=== PATIENT | male | born 1950 | race Caucasian/White ===

== ENCOUNTER 2016-10-08 14:58 | Inpatient (IN) | payer MEDICARE, OTHER ==
[~2016-10-08] VITALS: Ht 167.6 cm; Wt 81.6 kg
--- OUTSIDE RECORDS SUMMARY | 2016-10-08 15:02 | XMS REPORT | Referral Summary ---
Author Organization Unknown Address Unknown Phone Unavailable Care Team Providers Care Stripper Preliminary Name Role Phone Ben Gonzales Primary Care Physician [phone] Encounter [facility] SEBASTIAN [id number] Date(s): 08/01/14 - 08/01/14 [facility] Kee Newton Family [address] [place] [id number] Discharge Diagnosis: Encounter for pre-employment drug testing Discharge Disposition: Home or Self Care Attending Physician: Avinash Landry MD Admitting Physician: Avinash Landry MD Vital Signs Most recent to 1 oldest [Reference Range]: Peripheral Pulse 76 bpm Rate [60-100 bpm] (08/01/14 8:18 AM) Blood Pressure 130/80 mmHg [90-140/60-90 mmHg] (08/01/14 8:18 AM) Problem List Condition Effective Dates Status Health Status Informant Obesity(Confirmed) Active patient Tobacco Active patient user(Confirmed) Allergies, Adverse Reactions, Alerts No Known Allergies Medications No data available for this section Results No data available for this section Immunizations No data available for this section Procedures No data available for this section Social History Social History Type Response Smoking Status Current some day smoker; Type: Cigarettes Assessment and Plan Extracted from: Title: Ambulatory Patient Education Author: Avinash Landry MD Date: Family Medicine Preventive Care for Adults, Male A healthy lifestyle and preventive care can promote health and wellness. Preventive health guidelines for men include the following becerra practices: A routine yearly physical is a good way to check with your caregiver about your health and preventative screening. It is a chance to share any concerns and updates on your health, and to receive a thorough exam. Visit your dentist for a routine exam and preventative care every 6 months. Melvin your teeth twice a day and floss once a day. Good oral hygiene prevents tooth decay and gum disease. The frequency of eye exams is based on your age, health, family medical history, use of contact lenses, and other factors. Follow your caregiver's recommendations for frequency of eye exams. Eat a healthy diet. Foods like vegetables, fruits, whole grains, low-fat dairy products, and lean protein foods contain the nutrients you need without too many calories. Decrease your intake of foods high in solid fats, added sugars, and salt. Eat the right amount of calories for you.Get information about a proper diet from your caregiver, if necessary. Regular physical exercise is one of the most important things you can do for your health. Most adults should get at least 150 minutes of moderate- intensity exercise (any activity that increases your heart rate and causes you to sweat) each week. In addition, most adults need muscle-strengthening exercises on 2 or more days a week. Maintain a healthy weight. The body mass index (BMI) is a screening tool to identify possible weight problems. It provides an estimate of body fat based on height and weight. Your caregiver can help determine your BMI, and can help you achieve or maintain a healthy weight.For adults 20 years and older: A BMI below 18.5 is considered underweight. A BMI of 18.5 to 24.9 is normal. A BMI of 25 to 29.9 is considered overweight. A BMI of 30 and above is considered obese. Maintain normal blood lipids and cholesterol levels by exercising and minimizing your intake of saturated fat. Eat a balanced diet with plenty of fruit and vegetables. Blood tests for lipids and cholesterol should begin at age 20 and be repeated every 5 years. If your lipid or cholesterol levels are high, you are over 50, or you are a high risk for heart disease, you may need your cholesterol levels checked more frequently.Ongoing high lipid and cholesterol levels should be treated with medicines if diet and exercise are not effective. If you smoke, find out from your caregiver how to quit. If you do not use tobacco, do not start. Lung cancer screening is recommended for adults aged 5580 years who are at high risk for developing lung cancer because of a history of smoking. Yearly low-dose computed tomography (CT) is recommended for people who have at least a 54-pvmf-vkuh history of smoking and are a current smoker or have quit within the past 15 years. A pack year of smoking is smoking an average of 1 pack of cigarettes a day for 1 year (for example: 1 pack a day for 30 years or 2 packs a day for 15 years). Yearly screening should continue until the smoker has stopped smoking for at least 15 years. Yearly screening should also be stopped for people who develop a health problem that would prevent them from having lung cancer treatment. If you choose to drink alcohol, do not exceed 2 drinks per day. One drink is considered to be 12 ounces (355 mL) of beer, 5 ounces (148 mL) of wine, or 1.5 ounces (44 mL) of liquor. Avoid use of street drugs. Do not share needles with anyone. Ask for help if you need support or instructions about stopping the use of drugs. High blood pressure causes heart disease and increases the risk of stroke. Your blood pressure should be checked at least every 1 to 2 years. Ongoing high blood pressure should be treated with medicines, if weight loss and exercise are not effective. If you are 45 to 79 years old, ask your caregiver if you should take aspirin to prevent heart disease. Diabetes screening involves taking a blood sample to check your fasting blood sugar level. This should be done once every 3 years, after age 45, if you are within normal weight and without risk factors for diabetes. Testing should be considered at a younger age or be carried out more frequently if you are overweight and have at least 1 risk factor for diabetes. Colorectal cancer can be detected and often prevented. Most routine colorectal cancer screening begins at the age of 50 and continues through age 75. However, your caregiver may recommend screening at an earlier age if you have risk factors for colon cancer. On a yearly basis, your caregiver may provide home test kits to check for hidden blood in the stool. Use of a small camera at the end of a tube, to directly examine the colon (sigmoidoscopy or colonoscopy ), can detect the earliest forms of colorectal cancer. Talk to your caregiver about this at age 50, when routine screening begins. Direct examination of the colon should be repeated every 5 to 10 years through age 75, unless early forms of pre-cancerous polyps or small growths are found. Hepatitis C blood testing is recommended for all people born from 1945 through 1965 and any individual with known risks for hepatitis C. Practice safe sex. Use condoms and avoid high-risk sexual practices to reduce the spread of sexually transmitted infections (STIs). STIs include gonorrhea, chlamydia, syphilis, trichomonas, herpes, HPV, and human immunodeficiency virus (HIV). Herpes, HIV, and HPV are viral illnesses that have no cure. They can result in disability, cancer, and . A one-time screening for abdominal aortic aneurysm (AAA) and surgical repair of large AAAs by sound wave imaging (ultrasonography ) is recommended for ages 65 to 75 years who are current or former smokers. Healthy men should no longer receive prostate-specific antigen (PSA) blood tests as part of routine cancer screening. Consult with your caregiver about prostate cancer screening. Testicular cancer screening is not recommended for adult males who have no symptoms. Screening includes self-exam, caregiver exam, and other screening tests. Consult with your caregiver about any symptoms you have or any concerns you have about testicular cancer. Use sunscreen. Apply sunscreen liberally and repeatedly throughout the day. You should seek shade when your shadow is shorter than you. Protect yourself by wearing long sleeves, pants, a wide-brimmed hat, and sunglasses year round, whenever you are outdoors. Once a month, do a whole body skin exam, using a mirror to look at the skin on your back. Notify your caregiver of new moles, moles that have irregular borders, moles that are larger than a pencil eraser, or moles that have changed in shape or color. Stay current with required immunizations. Influenza vaccine. All adults should be immunized every year. Tetanus, diphtheria, and acellular pertussis (Td, Tdap) vaccine. An adult who has not previously received Tdap or who does not know his vaccine status should receive 1 dose of Tdap. This initial dose should be followed by tetanus and diphtheria toxoids (Td) booster doses every 10 years. Adults with an unknown or incomplete history of completing a 3-dose immunization series with Td -containing vaccines should begin or complete a primary immunization series including a Tdap dose. Adults should receive a Td booster every 10 years. Varicella vaccine. An adult without evidence of immunity to varicella should receive 2 doses or a second dose if he has previously received 1 dose. Human papillomavirus (HPV) vaccine. Males aged 1321 years who have not received the vaccine previously should receive the 3-dose series. Males aged 22 26 years may be immunized. Immunization is recommended through the age of 26 years for any male who has sex with males and did not get any or all doses earlier. Immunization is recommended for any person with an immunocompromised condition through the age of 26 years if he did not get any or all doses earlier. During the 3-dose series, the second dose should be obtained 48 weeks after the first dose. The third dose should be obtained 24 weeks after the first dose and 16 weeks after the second dose. Zoster vaccine. One dose is recommended for adults aged 60 years or older unless certain conditions are present. Measles, mumps, and rubella (MMR) vaccine. Adults born before 1955 generally are considered immune to measles and mumps. Adults born in 1955 or later should have 1 or more doses of MMR vaccine unless there is a contraindication to the vaccine or there is laboratory evidence of immunity to each of the three diseases. A routine second dose of MMR vaccine should be obtained at least 28 days after the first dose for students attending postsecondary schools, health care workers, or international travelers. People who received inactivated measles vaccine or an unknown type of measles vaccine during should receive 2 doses of MMR vaccine. People who received inactivated mumps vaccine or an unknown type of mumps vaccine before 1978 and are at high risk for mumps infection should consider immunization with 2 doses of MMR vaccine. Unvaccinated health care workers born before 1956 who lack laboratory evidence of measles, mumps, or rubella immunity or laboratory confirmation of disease should consider measles and mumps immunization with 2 doses of MMR vaccine or rubella immunization with 1 dose of MMR vaccine. Pneumococcal 13-valent conjugate (PCV13) vaccine. When indicated, a person who is uncertain of his immunization history and has no record of immunization should receive the PCV13 vaccine. An adult aged 19 years or older who has certain medical conditions and has not been previously immunized should receive 1 dose of PCV13 vaccine. This PCV13 should be followed with a dose of pneumococcal polysaccharide (PPSV23) vaccine. The PPSV23 vaccine dose should be obtained at least 8 weeks after the dose of PCV13 vaccine. An adult aged 19 years or older who has certain medical conditions and previously received 1 or more doses of PPSV23 vaccine should receive 1 dose of PCV13. The PCV13 vaccine dose should be obtained 1 or more years after the last PPSV23 vaccine dose. Pneumococcal polysaccharide (PPSV23) vaccine. When PCV13 is also indicated , PCV13 should be obtained first. All adults aged 65 years and older should be immunized. An adult younger than age 65 years who has certain medical conditions should be immunized. Any person who resides in a detention or long -term care facility should be immunized. An adult smoker should be immunized. People with an immunocompromised condition and certain other conditions should receive both PCV13 and PPSV23 vaccines. People with human immunodeficiency virus (HIV) infection should be immunized as soon as possible after diagnosis. Immunization during chemotherapy or radiation therapy should be avoided. Routine use of PPSV23 vaccine is not recommended for [place] Indians, [place] Natives, or people younger than 65 years unless there are medical conditions that require PPSV23 vaccine. When indicated, people who have unknown immunization and have no record of immunization should receive PPSV23 vaccine. One-time revaccination 5 years after the first dose of PPSV23 is recommended for people aged 1964 years who have chronic kidney failure, nephrotic syndrome, asplenia, or immunocompromised conditions. People who received 12 doses of PPSV23 before age 65 years should receive another dose of PPSV23 vaccine at age 65 years or later if at least 5 years have passed since the previous dose. Doses of PPSV23 are not needed for people immunized with PPSV23 at or after age 65 years. Meningococcal vaccine. Adults with asplenia or persistent complement component deficiencies should receive 2 doses of quadrivalent meningococcal conjugate (MenACWY-D) vaccine. The doses should be obtained at least 2 months apart. Microbiologists working with certain meningococcal bacteria, recruits, people at risk during an outbreak, and people who travel to or live in countries with a high rate of meningitis should be immunized. A first-year college student up through age 21 years who is living in a residence [place] should receive a dose if he did not receive a dose on or after his 16th birthday. Adults who have certain high-risk conditions should receive one or more doses of vaccine. Hepatitis A vaccine. Adults who wish to be protected from this disease, have certain high-risk conditions, work with hepatitis A-infected animals, work in hepatitis A research labs, or travel to or work in countries with a high rate of hepatitis A should be immunized. Adults who were previously unvaccinated and who anticipate close contact with an international adoptee during the first 60 days after arrival in the [place] from a country with a high rate of hepatitis A should be immunized. Hepatitis B vaccine. Adults who wish to be protected from this disease, have certain high-risk conditions, may be exposed to blood or other infectious body fluids, are household contacts or sex partners of hepatitis B positive people, are clients or workers in certain care facilities, or travel to or work in countries with a high rate of hepatitis B should be immunized. Haemophilus influenzae type b (Hib) vaccine. A previously unvaccinated person with asplenia or sickle cell disease or having a scheduled splenectomy should receive 1 dose of Hib vaccine. Regardless of previous immunization, a recipient of a hematopoietic stem cell transplant should receive a 3-dose series 612 months after his successful transplant. Hib vaccine is not recommended for adults with HIV infection. Preventive Service / Frequency Ages 19 to 39 Blood pressure check. / Every 1 to 2 years. Lipid and cholesterol check. / Every 5 years beginning at age 20. Hepatitis C blood test. / For any individual with known risks for hepatitis C. Skin self-exam. / Monthly. Influenza vaccine. / Every year. Tetanus, diphtheria, and acellular pertussis (Tdap, Td) vaccine. / Consult your caregiver. 1 dose of Td every 10 years. Varicella vaccine. / Consult your caregiver. HPV vaccine. / 3 doses over 6 months, if 26 and younger. Measles, mumps, rubella (MMR) vaccine. / You need at least 1 dose of MMR if you were born in 1957 or later. You may also need a 2nd dose. Pneumococcal 13-valent conjugate (PCV13) vaccine. / Consult your caregiver. Pneumococcal polysaccharide (PPSV23) vaccine. / 1 to 2 doses if you smoke cigarettes or if you have certain conditions. Meningococcal vaccine. / 1 dose if you are age 19 to 21 years and a first -year college student living in a residence [place], or have one of several medical conditions, you need to get vaccinated against meningococcal disease. You may also need additional booster doses. Hepatitis A vaccine. / Consult your caregiver. Hepatitis B vaccine. / Consult your caregiver. Haemophilus influenzae type b (Hib) vaccine. / Consult your caregiver. Ages 40 to 64 Blood pressure check. / Every 1 to 2 years. Lipid and cholesterol check. / Every 5 years beginning at age 20. Lung cancer screening. / Every year if you are aged 5580 years and have a 13-vvsy-sjpo history of smoking and currently smoke or have quit within the past 15 years. Yearly screening is stopped once you have quit smoking for at least 15 years or develop a health problem that would prevent you from having lung cancer treatment. Fecal occult blood test (FOBT) of stool. / Every year beginning at age 50 and continuing until age 75. You may not have to do this test if you get colonoscopy every 10 years. Flexible sigmoidoscopy or colonoscopy. / Every 5 years for a flexible sigmoidoscopy or every 10 years for a colonoscopy beginning at age 50 and continuing until age 75. Hepatitis C blood test. / For all people born from 1945 through 1964 and any individual with known risks for hepatitis C. Skin self-exam. / Monthly. Influenza vaccine. / Every year. Tetanus, diphtheria, and acellular pertussis (Tdap/Td) vaccine. / Consult your caregiver. 1 dose of Td every 10 years. Varicella vaccine. / Consult your caregiver. Zoster vaccine. / 1 dose for adults aged 60 years or older. Measles, mumps, rubella (MMR) vaccine. / You need at least 1 dose of MMR if you were born in 1956 or later. You may also need a 2nd dose. Pneumococcal 13-valent conjugate (PCV13) vaccine. / Consult your caregiver. Pneumococcal polysaccharide (PPSV23) vaccine. / 1 to 2 doses if you smoke cigarettes or if you have certain conditions. Meningococcal vaccine. / Consult your caregiver. Hepatitis A vaccine. / Consult your caregiver. Hepatitis B vaccine. / Consult your caregiver. Haemophilus influenzae type b (Hib) vaccine. / Consult your caregiver. Ages 65 and over Blood pressure check. / Every 1 to 2 years. Lipid and cholesterol check./ Every 5 years beginning at age 20. Lung cancer screening. / Every year if you are aged 5580 years and have a 30-oqzp-xvbp history of smoking and currently smoke or have quit within the past 15 years. Yearly screening is stopped once you have quit smoking for at least 15 years or develop a health problem that would prevent you from having lung cancer treatment. Fecal occult blood test (FOBT) of stool. / Every year beginning at age 50 and continuing until age 75. You may not have to do this test if you get colonoscopy every 10 years. Flexible sigmoidoscopy or colonoscopy. / Every 5 years for a flexible sigmoidoscopy or every 10 years for a colonoscopy beginning at age 50 and continuing until age 75. Hepatitis C blood test. / For all people born from 1945 through 1964 and any individual with known risks for hepatitis C. Abdominal aortic aneurysm (AAA) screening. / A one-time screening for ages 65 to 75 years who are current or former smokers. Skin self-exam. / Monthly. Influenza vaccine. / Every year. Tetanus, diphtheria, and acellular pertussis (Tdap/Td) vaccine. / 1 dose of Td every 10 years. Varicella vaccine. / Consult your caregiver. Zoster vaccine. / 1 dose for adults aged 60 years or older. Pneumococcal 13-valent conjugate (PCV13) vaccine. / Consult your caregiver. Pneumococcal polysaccharide (PPSV23) vaccine. / 1 dose for all adults aged 65 years and older. Meningococcal vaccine. / Consult your caregiver. Hepatitis A vaccine. / Consult your caregiver. Hepatitis B vaccine. / Consult your caregiver. Haemophilus influenzae type b (Hib) vaccine. / Consult your caregiver. Family history and personal history of risk and conditions may change your caregiver's recommendations. Document Released: 07/04/2002 Document Revised: 09/02/2013 Document Reviewed: ExitCare Patient Information 2014 [facility] [place]. No follow up information was provided. Extracted from: Title: Office Visit Note Author: Avinash Landry MD Date: 08/01/14 Assessment/Plan Encounter for pre-employment drug testing Two year permitexpected. UA pending. Ordered: Urine Dipstick Addendum One plus protein on final ua but not reported on preliminary. Patient already left with by card. Call to f/u with pcp. Avinash Landry MD on 01 August 2014 09:46:50 CDT
--- OUTSIDE RECORDS SUMMARY | 2016-10-08 15:02 | XMS REPORT | Continuity of Care Document ---
Author Author Rick Kingston DO Ambulatory Address [address] [place] [address] [place] [address] Phone Payers Payer name Insurance type Covered democrat ID Authorization(s) Unknown Problems Condition Effective Dates (start - stop) Clinical Status Brake Repair Mechanic's permit PE (physical examination) - *Routine Arthritis of shoulder region - *Controlled Family History Family Member Diagnosis Age At Onset Status Unknown Social History Social History Element Description Quantity Unknown Allergies, Adverse Reactions, Alerts Substance Reaction Severity Status Unknown Medications Medication Instructions Dosage Effective Dates (start - stop) Status Unknown Immunizations Vaccine Date Status Comments Unknown Results Test Name Date and Time Measure Units Reference Range Abnormal Flag Comments Panel Description: Urinalysis-Dipstick Site. 09:36:00 MID Color 09:36:00 Straw Clarity 09:36:00 Clear Specific Sterling-C 09:36:00 1.010 1.005-1.025 pH-C 09:36:00 7 5.0-8.0 Leukocytes-C 09:36:00 neg Jim/uL Negative Nitrites-C 09:36:00 neg Negative Protein-C 09:36:00 neg mg/dL Negative YE-Kmwyjhc-C 09:36:00 norm mg/dL Normal Ketones-C 09:36:00 neg mg/dL Negative Urobilinogen-C 09:36:00 norm mg/dL Normal Bilirubin-C 09:36:00 neg mg/dL Negative Blood-C 09:36:00 neg Mohsen/uL Negative Vital Signs Date / Time: Height Weight Pulse Rate Blood Pressure Temperature /09:26:00 66.75 in 187.00 lbs 68 /min 112/80 mm[Hg] 97.1 F Procedures Procedure Date Unknown Encounters Encounter Location Date Patient Visit [facility] Advance Directives Directive Effective Date Unknown
--- OUTSIDE RECORDS SUMMARY | 2016-10-08 15:02 | XMS REPORT | Continuity of Care Document ---
Author Author [facility] Organization [facility] Address Unknown Phone Unavailable Allergies Active Description Code Type Severity Reaction Onset Reported/Identified Relationship to Patient Clinical Status Yes No Known Allergies NKMA N/A N/A 08/01/2014 Medications Problems Procedures Results Encounters ACCT No. Visit Date/Time Discharge Status Pt. Type Provider Facility Loc./Unit Complaint [id number] 06/20/2013 09:22:00 06/20/2013 23 :59:59 [facility] Outpatient
--- OUTSIDE RECORDS SUMMARY | 2016-10-08 15:02 | XMS REPORT | Referral Summary ---
Author Organization Unknown Address Unknown Phone Unavailable Care Team Providers Care Blacksmith Apprentice Name Role Phone Ben Gonzales Primary Care Physician [phone] Encounter [facility] [id number] Date(s): 08/07/14 - 08/07/14 Via REUBEN Kee, Hardik, Family [address] [place], [place] [address] Discharge Diagnosis: Asymptomatic proteinuria Discharge Diagnosis: Screening, lipid Discharge Diagnosis: SCREENING FOR LIPOID DISORDERS Discharge Diagnosis: SCREENING FOR MALIGNANT NEOPLASMS OF PROSTATE Discharge Diagnosis: Screening PSA (prostate specific antigen) Discharge Diagnosis: Proteinuria Discharge Disposition: Home or Self Care Attending Physician: Avinash Landry MD Admitting Physician: Avinash Landry MD Vital Signs Most recent to 1 oldest [Reference Range]: Blood Pressure 110/80 mmHg [90-140/60-90 mmHg] (08/07/14 11:00 AM) Problem List Condition Effective Dates Status Health Status Informant Obesity(Confirmed) Active patient Tobacco Active patient user(Confirmed) Allergies, Adverse Reactions, Alerts No Known Allergies Medications No data available for this section Results Hematology Most recent to 1 oldest [Reference Range]: WBC [4.8-10.8 K/uL] 4.4 K/uL *LOW* (08/07/14 11:20 AM) RBC [4.60-6.20 M/uL] 4.77 M/uL (08/07/14 11:20 AM) Hgb [14.0-18.0 16.1 gm/dL gm/dL] (08/07/14 11:20 AM) Hct [42.0-52.0 %] 46.9 % (08/07/14 11:20 AM) MCV [82.0-99.0 fL] 98.3 fL (08/07/14 11:20 AM) MCH [27.0-32.0 pg] 33.8 pg *HI* (08/07/14 11:20 AM) MCHC [32.0-36.0 34.3 gm/dL gm/dL] (08/07/14 AM) RDW [11.5-14.5 %] 13.5 % (08/07/14) Platelet [150-400 183 K/uL K/uL] (08/07/14) MPV [8.8-14.8 fL] 9.5 fL (08/07/14) Immature 0.2 % Granulocytes (08/07/14) [0.0-1.0 %] Neutrophils [51-75 55 % %] (08/07/14) Lymphocytes [20-46 28 % %] (08/07/14) Monocytes [4-11 %] 10 % (08/07/14) Eosinophils [0-4 %] 6 % *HI* (08/07/14) Basophils [0-2 %] 1 % (08/07/14) Neutro Absolute 2.45 THOUS [1.90-7.00 THOUS] (08/07/14 AM) Lymph Absolute 1.23 THOUS [0.80-3.30 THOUS] (08/07/14 AM) [place] Absolute 0.46 THOUS [0.30-1.00 THOUS] (08/07/14 AM) Eos Absolute 0.25 THOUS [0.00-0.50 THOUS] (08/07/14 AM) Baso Absolute 0.04 THOUS [0.00-0.20 THOUS] (08/07/14 AM) Chemistry Most recent to 1 oldest [Reference Range]: Sodium Lvl [135-144 141 mEq/L mEq/L] (08/07/14 AM) Potassium Lvl 4.2 mEq/L [3.5-5.2 mEq/L] (08/07/14 AM) Chloride [99-111 110 mEq/L mEq/L] (08/07/14 AM) CO2 [23-31 mEq/L] 21 mEq/L *LOW* (08/07/14) AGAP [3-20] 10 (3/19/15 11: AM) BUN [8-26 mg/dL] 25 mg/dL (08/07/14 AM) Glucose Lvl [70-99 88 mg/dL mg/dL] (08/07/14 AM) Creatinine Lvl 0.90 mg/dL [0.72-1.25 mg/dL] (08/07/14 AM) eGFR [>60 mL/min] >60 mL/min 1 (08/07/14 AM) Calcium Lvl 9.3 mg/dL [8.9-10.5 mg/dL] (08/07/14 AM) Albumin Lvl [3.4-4.8 4.0 gm/dL gm/dL] (08/07/14 AM) Total Protein 6.4 gm/dL [6.2-8.1 gm/dL] (08/07/14 AM) Globulin [1.8-4.0 2.4 gm/dL gm/dL] (08/07/14 AM) ALT [0-55 unit/L] 17 unit/L (08/07/14 AM) AST [5-34 unit/L] 16 unit/L (08/07/14 AM) Alk Phos [40-150 76 unit/L unit/L] (08/07/14 AM) Bili Total [0.2-1.2 0.7 mg/dL mg/dL] (08/07/14 AM) PSA (wihout Reflex 2.0 ng/mL 2 Free) [0.0-4.5 (08/07/14 AM) ng/mL] Chol [0-199 mg/dL] 164 mg/dL (08/07/14 AM) Trig [0-149 mg/dL] 139 mg/dL (08/07/14 AM) HDL [40-84 mg/dL] 44 mg/dL (08/07/14 AM) LDL [0-130 mg/dL] 92 mg/dL (08/07/14 AM) VLDL Cholesterol 28 mg/dL [0-28 mg/dL] (08/07/14 11:20 AM) Cardiac Risk 3.7 [0.0-5.7] (08/07/14 11:20 AM) 1Result Comment: Multiply eGFR results by 1.21 for race. 2Result Comment: [facility]UA PSA Best Practice Guidelines: Age-Adjusted PSA Values by Ethnic Group Age Range Asians - Caucasians Americans 40-49 0-2.0 0-2.0 0-2.5 50-59 0-3.0 0-4.0 0-3.5 60-69 0-4.0 0-4.5 0-4.5 70-79 0-5.0 0-5.5 0-6.5 Urinalysis Most recent to 1 oldest [Reference Range]: UA Color Yellow (08/07/14 11:23 AM) UA Appear Clear (08/07/14 11:23 AM) UA pH [5.0-8.0] 5.0 (08/07/14 11:23 AM) UA Leuk Est Negative [Negative] (08/07/14 11:23 AM) UA Nitrite Negative [Negative] (08/07/14 11:23 AM) UA Protein Negative [Negative] (08/07/14 11:23 AM) UA Glucose Negative [Negative] (08/07/14 11:23 AM) UA Ketones Negative [Negative] (08/07/14 11:23 AM) UA Urobilinogen 0.2 mg/dL [<1.0 mg/dL] (08/07/14 11:23 AM) UA Bili [Negative] Negative (08/07/14 11:23 AM) UA Blood [Negative] Negative (08/07/14 11:23 AM) UA Spec Grav 1.025 [1.003-1.030] (08/07/14 11:23 AM) Type Voided (08/07/14 11:23 AM) Immunizations No data available for this section Procedures Procedure Date Related Diagnosis Body Site Collection of venous blood by venipuncture 08/07/14 Social History Social History Type Response Smoking Status Current some day smoker; Type: Cigarettes Assessment and Plan Extracted from: Title: Ambulatory Patient Education Author: Avinash Landry MD Date: Family Medicine Arterial Hypertension Arterial hypertension (high blood pressure ) is a condition of elevated pressure in your blood vessels. Hypertension over a long period of time is a risk factor for strokes, heart attacks, and heart failure. It is also the leading cause of kidney (renal ) failure. CAUSES In Adults -- Over 90% of all hypertension has no known cause. This is called essential or primary hypertension. In the other 10% of people with hypertension, the increase in blood pressure is caused by another disorder. This is called secondary hypertension . Important causes of secondary hypertension are: Heavy alcohol use. Obstructive sleep apnea. Hyperaldosterosim (Conn's syndrome). Steroid use. Chronic kidney failure. Hyperparathyroidism. Medications. Renal artery stenosis. Pheochromocytoma. [place]'s disease. Coarctation of the aorta. Scleroderma renal crisis. Licorice (in excessive amounts). Drugs (cocaine, methamphetamine). Your caregiver can explain any items above that apply to you. In Children -- Secondary hypertension is more common and should always be considered. -- Few women of childbearing age have high blood pressure. However, up to 10% of them develop hypertension of . Generally, this will not harm the woman. It may be a sign of 3 complications of : preeclampsia, HELLP syndrome, and eclampsia. Follow up and control with medication is necessary. SYMPTOMS This condition normally does not produce any noticeable symptoms. It is usually found during a routine exam. Malignant hypertension is a late problem of high blood pressure. It may have the following symptoms: Headaches. Blurred vision. End-organ damage (this means your kidneys, heart, lungs, and other organs are being damaged). Stressful situations can increase the blood pressure. If a person with normal blood pressure has their blood pressure go up while being seen by their caregiver, this is often termed "white coat hypertension." Its importance is not known. It may be related with eventually developing hypertension or complications of hypertension. Hypertension is often confused with mental tension, stress, and anxiety. DIAGNOSIS The diagnosis is made by 3 separate blood pressure measurements. They are taken at least 1 week apart from each other. If there is organ damage from hypertension, the diagnosis may be made without repeat measurements. Hypertension is usually identified by having blood pressure readings: Above 140/90 mmHg measured in both arms, at 3 separate times, over a couple weeks. Over 130/80 mmHg should be considered a risk factor and may require treatment in patients with diabetes. Blood pressure readings over 120/80 mmHg are called "pre-hypertension" even in non-diabetic patients. To get a true blood pressure measurement, use the following guidelines. Be aware of the factors that can alter blood pressure readings. Take measurements at least 1 hour after caffeine. Take measurements 30 minutes after smoking and without any stress. This is another reason to quit smoking it raises your blood pressure. Use a proper cuff size. Ask your caregiver if you are not sure about your cuff size. Most home blood pressure cuffs are automatic. They will measure systolic and diastolic pressures. The systolic pressure is the pressure reading at the start of sounds. Diastolic pressure is the pressure at which the sounds disappear. If you are elderly, measure pressures in multiple postures. Try sitting, lying or standing. Sit at rest for a minimum of 5 minutes before taking measurements. You should not be on any medications like decongestants. These are found in many cold medications. Record your blood pressure readings and review them with your caregiver. If you have hypertension: Your caregiver may do tests to be sure you do not have secondary hypertension (see "causes" above). Your caregiver may also look for signs of metabolic syndrome. This is also called Syndrome X or Insulin Resistance Syndrome. You may have this syndrome if you have type 2 diabetes, abdominal obesity, and abnormal blood lipids in addition to hypertension. Your caregiver will take your medical and family history and perform a physical exam. Diagnostic tests may include blood tests (for glucose, cholesterol, potassium, and kidney function), a urinalysis, or an EKG. Other tests may also be necessary depending on your condition. PREVENTION There are important lifestyle issues that you can adopt to reduce your chance of developing hypertension: Maintain a normal weight. Limit the amount of salt (sodium ) in your diet. Exercise often. Limit alcohol intake. Get enough potassium in your diet. Discuss specific advice with your caregiver. Follow a DASH diet (dietary approaches to stop hypertension). This diet is rich in fruits, vegetables, and low-fat dairy products, and avoids certain fats. PROGNOSIS Essential hypertension cannot be cured. Lifestyle changes and medical treatment can lower blood pressure and reduce complications. The prognosis of secondary hypertension depends on the underlying cause. Many people whose hypertension is controlled with medicine or lifestyle changes can live a normal, healthy life. RISKS AND COMPLICATIONS While high blood pressure alone is not an illness, it often requires treatment due to its short- and long-term effects on many organs. Hypertension increases your risk for: CVAs or strokes (cerebrovascular accident ). Heart failure due to chronically high blood pressure (hypertensive cardiomyopathy ). Heart attack (myocardial infarction ). Damage to the retina (hypertensive retinopathy ). Kidney failure (hypertensive nephropathy ). Your caregiver can explain list items above that apply to you. Treatment of hypertension can significantly reduce the risk of complications. TREATMENT For overweight patients, weight loss and regular exercise are recommended. Physical fitness lowers blood pressure. Mild hypertension is usually treated with diet and exercise. A diet rich in fruits and vegetables, fat-free dairy products, and foods low in fat and salt (sodium ) can help lower blood pressure. Decreasing salt intake decreases blood pressure in a 1/3 of people. Stop smoking if you are a smoker. The steps above are highly effective in reducing blood pressure. While these actions are easy to suggest, they are difficult to achieve. Most patients with moderate or severe hypertension end up requiring medications to bring their blood pressure down to a normal level. There are several classes of medications for treatment. Blood pressure pills (antihypertensives ) will lower blood pressure by their different actions. Lowering the blood pressure by 10 mmHg may decrease the risk of complications by as much as 25%. The goal of treatment is effective blood pressure control. This will reduce your risk for complications. Your caregiver will help you determine the best treatment for you according to your lifestyle. What is excellent treatment for one person, may not be for you. HOME CARE INSTRUCTIONS Do not smoke. Follow the lifestyle changes outlined in the "Prevention" section. If you are on medications, follow the directions carefully. Blood pressure medications must be taken as prescribed. Skipping doses reduces their benefit. It also puts you at risk for problems. Follow up with your caregiver, as directed. If you are asked to monitor your blood pressure at home, follow the guidelines in the "Diagnosis" section above. SEEK MEDICAL CARE IF: You think you are having medication side effects. You have recurrent headaches or lightheadedness. You have swelling in your ankles. You have trouble with your vision. SEEK IMMEDIATE MEDICAL CARE IF: You have sudden onset of chest pain or pressure, difficulty breathing, or other symptoms of a heart attack. You have a severe headache. You have symptoms of a stroke (such as sudden weakness, difficulty speaking , difficulty walking). MAKE SURE YOU: Understand these instructions. Will watch your condition. Will get help right away if you are not doing well or get worse. Document Released: 05/08/2006 Document Revised: 07/30/2012 Document Reviewed: [employer] Patient Information 2014 [employer]. Proteinuria Proteinuria is a condition in which urine contains more protein than is normal. Proteinuria is either a sign that your body is producing too much protein or a sign that there is a problem with the kidneys. Healthy kidneys prevent most substances that the body needs, including proteins, from leaving the bloodstream and ending up in urine. CAUSES Proteinuria may be caused by a temporary event or condition such as stress, exercise, or fever, and go away on its own. Proteinuria may also be a symptom of a more serious condition or disease. Causes of proteinuria include: A kidney disease caused by: Diabetes. High blood pressure (hypertension ). A disease that affects the immune system, such as lupus. A genetic disease, such as [place]'s syndrome. Medicines that damage the kidneys, such as long-term nonsteroidal anti- inflammatory drugs (NSAIDs). Poisoning or exposure to toxic substances. A reoccurring kidney or urinary infection. Excess protein production in the body caused by: Multiple myeloma. Amyloidosis. SYMPTOMS You may have proteinuria without having noticeable symptoms. If there is a large amount of protein in your urine, your urine may look foamy. You may also notice swelling (edema ) in your hands, feet, abdomen, or face. DIAGNOSIS To determine whether you have proteinuria, you will need to provide a urine sample. Your urine will then be tested for too much protein and the main blood protein albumin. If your test shows that you have proteinuria, you may need to take additional tests to determine its cause, how much protein is in your urine, and what type of protein is being lost. Tests may include: Blood tests. Urine tests. A blood pressure measurement. Imaging tests. TREATMENT Treatment will depend on the cause of your proteinuria. Your caregiver will discuss treatment options with you after you have been diagnosed. If your proteinuria is mild or temporary, no treatment may be necessary. HOME CARE INSTRUCTIONS Ask your caregiver if monitoring the level of protein in your urine at home using simple testing strips is appropriate for you. Early detection of proteinuria can lead to early and often successful treatment of the condition causing it. Document Released: 06/28/2006 Document Revised: 01/30/2013 Document Reviewed: [employer] Patient Information 2014 [employer]. No follow up information was provided. Extracted from: Title: Office Visit Note Author: Avinash Landry MD Date: 08/07/14 Assessment/Plan Asymptomatic proteinuria, Proteinuria Lab pending. Consider renal sono or consult contingent on work up. Consider 24 hour urine protein collection contingent on routine lab today. A work/school note was offered and deferred by the patient.
[2016-10-08] MEDS ORDERED: NO ROUTINE MEDS (15:05)
--- NOTE | 2016-10-08 15:12 | NUR ---
ELIMINATION PT VOIDED 150CC DK BRIANNA URINE WITH A YELLOW STAINING OF THE URINAL. UA SENT TO LAB
[2016-10-08] MEDS ORDERED: NORMAL SALINE 1,000 ML IV ONE (15:15)
--- NOTE | 2016-10-08 15:15 | NUR ---
IVL IVL STARTED AND BLOOD COLLECTED AND GIVEN TO LAB
--- NOTE | 2016-10-08 15:17 | NUR ---
RADIOLOGY PT TO RADIOLOGY PER CART
--- NOTE | 2016-10-08 15:27 | NUR ---
RADIOLOGY PT FROM RADIOLOGY PER CART
[2016-10-08 15:28] LABS: BLOOD, URINE NEGATIVE (NEGATIVE); LEUKOCYTE ESTERASE ,URINE NEGATIVE (NEGATIVE); NITRITE,URINE NEGATIVE (NEGATIVE); UROBILINOGEN,URINE 0.2 EU/DL (NORMAL)
--- NOTE | 2016-10-08 15:28 | ERPDOC ---
Departure Disposition Decision Date: October 08, 2016 Disposition Decision Time: 17:00 Disposition: 02 TO [facility] Impression Impression Impression: Primary Impression: Acute pancreatitis Pancreatitis type: unspecified pancreatitis type Acute pancreatitis complication: unspecified Qualified Codes: K85.90 - Acute pancreatitis without necrosis or infection, unspecified Additional Impression: Serum total bilirubin elevated Severity: Moderate Condition: Improved Seen By: Physician only Referrals: LORE SOHEMAKER (Family) Problems/Meds/Labs Reviewed?: Yes Medications reviewed and manag: Yes Follow up care ordered?: Yes Mental Status: Alert, Oriented HPI - General Medical General Chief Complaint: Male Urogenital Problems Stated Complaint: BLOOD IN URINE Time Seen by Provider: 14:59 Source: patient Exam Limitations: no limitations HPI - General Medical Initial Comments 66-year-old male presents to the emergency department with a chief complaint of 3-4 days of left sided flank pain. Patient denies any trauma or injury. Patient denies any trauma, travel, poorly prepared food, or recent antibiotic use. Patient describes the pain as dull. It is mild. No radiation. He does not note any exacerbating or remitting factors. Patient has not attempted any intervention for his discomfort prior arrival to the department. Patient has a history of similar symptoms in the past. Patient was at home when the symptoms began. Symptoms have had a gradual progression since onset. Occurred At: home Onset: Gradual Allergies: Coded Allergies: No Known Allergies (Unverified , 10/08/16) Past History Past Medical History Pt denies signifigant [facility] Surgical History Denies Surgeries Family History Family History: Negative Social History Smoking Status: Never smoker Substance Use Type: does not use Alcohol Intake: occasionally Review of Systems Constitutional Constitutional: DENIES: chills, fever Eyes General: DENIES: erythema, exudate Lids/Accessories: DENIES: erythema, swelling Vision: DENIES: acuity, blurring ENMT Ears: DENIES: drainage, erythema Hearing: DENIES: hearing loss Balance: DENIES: ataxia, falling to one side Sinuses: DENIES: congestion, pain Nose: DENIES: nosebleeds, pain Mouth/Throat: DENIES: painful swallowing, sore throat Teeth: DENIES: pain Jaw: DENIES: pain Cardiovascular Cardiac: DENIES: chest pain, dyspnea on exertion Rhythm/Rate: DENIES: irregular beat, palpitations Vascular: DENIES: pedal edema, unilateral swelling Pulmonary Respiratory: DENIES: cough, dyspnea, pleuritic chest pain, sputum GI Upper Abdomen: DENIES: nausea, pain, vomiting Lower Abdomen: DENIES: diarrhea, pain General: DENIES: burning, dysuria, frequency, urgency Musculoskeletal General: DENIES: joint pain, tenderness Integumentary Skin: DENIES: itching, rash Neurological General: DENIES: change in strength, headache, numbness, weakness Psychiatric Psychiatric: DENIES: emotional instability, suicidal ideation/attempt Endocrine Endocrine: DENIES: polydipsia, polyphagia Hematologic/Lymphatic Hematologic/Lymphatic: DENIES: frequent nosebleeds, lymphadenopathy Allergic/Immunological Allergic/Immunoligical: DENIES: allergic reactions, hives Physical Exam General General Nourishment: well nourished, well developed, appears stated age, no acute distress, adult General Body Habitus: well groomed Vitals and Pain First Documented Vital Signs Date Time Temp Pulse Resp B/P Pulse Ox O2 Delivery O2 Flow Rate FiO2 10/08/16 15:00 97.4 81 16 178/89 96 Room Air Weight: Kilograms: 82.300 Height (feet): 5 Height (inches): 6.00 Triage Pain Scale: RN VS reviewed by Provider: Yes Normal Exams: Head: Normocephalic w/o trauma Eyes: Pupils are PERRLA w/ EOMI, No scleral icterus, irritation, or foreign bodies noted ENMT: No facial trauma, nasal exudates, pharyngeal erythema, or exudates are noted Dental: No fractured, loose, or missing teeth noted Neck: Full range of motion, without adenopathy, JVD, bruits or thyromegaly Chest/Resp: Clear all kerns, with good airflow, and symmetry bilaterally CV: Regular rate and rhythm, without murmur or gallop, Pulses 2+ all extremities, capillary refill, <2 seconds all ext., no pedal edema noted Abdomen: Bowel sounds positive, soft, non-tender, non-distended, no hepatosplenomegaly, masses or bruits noted Lymphatic: No lymphadenopathy, or lymphedema noted Musculoskeletal: No tenderness, or deformity noted, good range of motion, all extremities Integumentary: No rashes, hives, or bruising noted, hair and nails, without abnormality Neurologic: Patient is alert, and oriented, cranial nerves, motor/sensory/ cerebellar, exams w/o gross deficits, to observation Psychiatric: Patient exhibits, appropriate attention, emotion and affect Differential Diagnoses Considering: Medication Effect, Metabolic, Other (Kidney stone, SBO, Gallbladder disease) Progress Results/Orders Orders Procedure Category Date Status Time Cbc W/Auto LAB 10/08/16 Complete Diff-Reflex Manual Cmp - Comprehensive LAB 10/08/16 Complete Metabolic Lipase LAB 10/08/16 Complete Ua, Dip Wreflex LAB 10/08/16 Complete Microsc & Automatic Lathe Operator 15:06 EKG EKG 10/08/16 Taken Iv Lock (Ed Only) EDM 10/08/16 Transmitted 15:06 Normal Saline (Normal PHA 10/08/16 Complete Saline Iv) 15:15 Ct Renal W/O Contrast CT 10/08/16 Taken 15:08 Us Gallbladder US 10/08/16 Taken 15:54 Lab Results Laboratory Tests Test 10/08/16 15:00 10/08/16 15:17 Urine Collection Type Cleancatch-midstream Urine Color Brown Urine Turbidity Clear Urine pH 5.5 Urine Specific [place] 1.025 Urine Protein Negative Urine Glucose (UA) 1+ Urine Ketones Negative Urine Blood Negative Urine Nitrite Negative Urine Bilirubin 3+ Urine Urobilinogen 0.2EU/DL Urine Leukocyte Esterase Negative Urinalysis Comment Microscopic not ind. White Blood Count 6.4T/MM3 Red Blood Count 4.48M/MM3 Hemoglobin 15.2GM/DL Hematocrit 43.7% Mean Corpuscular Volume 97.5UM3 Mean Corpuscular Hemoglobin 33.9UUG Mean Corpuscular Hemoglobin Concent 34.8GM/DL RDW Standard Deviation 51.5FL Platelet Count 191T/MM3 Mean Platelet Volume 10.3UM3 Immature Granulocyte % (Auto) 0.3% Neutrophils (%) (Auto) 66.1% Lymphocytes (%) (Auto) 19.7% Monocytes (%) (Auto) 7.5% Eosinophils (%) (Auto) 5.6% Basophils (%) (Auto) 0.8% Absolute Immature Granulocyte (auto 0.02T/MM3 Absolute Neutrophils (auto) 4.2T/MM3 Absolute Lymphocytes (auto) 1.3T/MM3 Absolute Monocytes (auto) 0.5T/MM3 Absolute Eosinophils (auto) 0.4T/MM3 Absolute Basophils (auto) 0.1T/MM3 Turbidity < 20 Sodium Level 147MEQ/L Potassium Level 4.6MEQ/L Chloride Level 111MEQ/L Carbon Dioxide Level 23MEQ/L Anion Gap 13MEQ/L Blood Urea Nitrogen 23.0MG/DL Creatinine 0.9MG/DL Glomerular Filtration Rate Calc 85 BUN/Creatinine Ratio 26RATIO Glucose Level 124MG/DL Calculated Osmolality 287MOSM/KG Calcium Level 9.1MG/DL Total Bilirubin 7.50MG/DL Icterus Index 2 Aspartate Amino Transf (AST/SGOT) 105U/L Alanine Aminotransferase (ALT/SGPT) 212U/L Alkaline Phosphatase 349U/L Total Protein 6.7G/DL Albumin 4.0G/DL Globulin 2.7G/DL Albumin/Globulin Ratio 1.5RATIO Lipase 1107U/L Chemistry Specimen Hemolysis < 15 Medications Current ED Medications Sodium Chloride (Normal Saline IV) 1,000 ml @ 999 mls/hr Q1H1M ONCE IV Last administered on 10/08/16t 15:29; Start 10/08/16 at 15:15; Stop 10/08/16 at 16:15 ; Status DC Progress Progress Labs / imaging were discussed in detail with the patient and questions are answered. Patient declines offered analgesic pain medication. Patient is given IV hydration. Patient is given Cipro/Flagyl intravenously in the emergency Department. Patient is admitted to the service of the hospitalist Dr. Darden who is in agreement with the current plan of management. Dr. Darden will handle his own surgical consultation. Patient is admitted to the hospital in improved condition. There are no further orders from the accepting or consulting physicians who were in agreement with the current plan of management. After discussion with the hospitalist the patient will be admitted in observation status to the floor. EKG EKG : Rate: 60-100 Rhythm: sinus [place]: normal QRS: normal Intervals: normal ST/T: normal Interpreted by: signing physician CT CT : CT: Abd/Pelvis no contrast Interpretation: Normal, Faxed Report Ultrasound US : Ultrasound: Gallbladder US Interpretation: Abnormal, Faxed Report (Sludge. no signs of acute cholecystitis. ) LUZ SIDDIQUI DO October 08, 2016 15:28
[2016-10-08 15:29] LABS: BASOPHILS # (AUTO) 0.1 T/MM3 (0-0.2); BASOPHILS % (AUTO) 0.8 % (0-2); EOSINOPHILS # (AUTO) 0.4 T/MM3 (0-0.5); EOSINOPHILS % (AUTO) 5.6 % (0-4); HCT - HEMATOCRIT 43.7 % (41-53); HGB - HEMOGLOBIN 15.2 GM/DL (13.5-17.5); IMMATURE GRANULOCYTE # (AUTO) 0.02 T/MM3 (0.00-0.03); IMMATURE GRANULOCYTE % (AUTO) 0.3 % (0.0-0.5); LYMPHOCYTES # (AUTO) 1.3 T/MM3 (1-4.8); LYMPHOCYTES % (AUTO) 19.7 % (23-45); MEAN CORPUSCULAR HGB 33.9 UUG (26-34); MEAN CORPUSCULAR HGB CONC(MCHC 34.8 GM/DL (31-37); MEAN CORPUSCULAR VOLUME 97.5 UM3 (80-100); MEAN PLATELET VOLUME 10.3 UM3 (9.4-12.4); MONOCYTES # (AUTO) 0.5 T/MM3 (0-0.8); MONOCYTES % (AUTO) 7.5 % (0-9.0); NEUTROPHILS #(AUTO)-ABSOLUTE 4.2 T/MM3 (1.8-7.7); NEUTROPHILS % (AUTO) 66.1 % (33-66); RED BLOOD COUNT 4.48 M/MM3 (4.50-5.90); WBC - WHITE BLOOD COUNT 6.4 T/MM3 (4.5-11.0)
--- NOTE | 2016-10-08 15:31 | NUR ---
EKG EKG TAKEN AND GIVEN TO DR SIDDIQUI
[2016-10-08 15:38] LABS: ALBUMIN/GLOBULIN RATIO 1.5 RATIO (1.1-2.2); ALKALINE PHOSPHATASE 349 U/L (38-126); ALT (SGPT) 212 U/L (21-72); ANION GAP 13 MEQ/L (5-15); AST (SGOT) 105 U/L (17-59); BUN/CREATININE RATIO 26 RATIO (6-26); CALCIUM 9.1 MG/DL (8.4-10.2); CHLORIDE 111 MEQ/L (98-107); CO2 - CARBON DIOXIDE 23 MEQ/L (22-30); CREATININE 0.9 MG/DL (0.8-1.5); GLOMERULAR FILTRATION RATE 85; GLUCOSE 124 MG/DL (75-110); LIPASE 1107 U/L (23-300); POTASSIUM 4.6 MEQ/L (3.6-5); SODIUM 147 MEQ/L (134-144); TOTAL PROTEIN 6.7 G/DL (6.3-8.2)
--- OUTSIDE RECORDS SUMMARY | 2016-10-08 15:50 | XMS REPORT | Continuity of Care Document ---
Author Author [facility] Organization [facility] Address Unknown Phone Unavailable Allergies Active Description Code Type Severity Reaction Onset Reported/Identified Relationship to Patient Clinical Status Yes No Known Allergies NKMA N/A N/A 08/01/2014 Medications Problems Procedures Results Encounters ACCT No. Visit Date/Time Discharge Status Pt. Type Provider Facility Loc./Unit Complaint [id number] 06/20/2013 09:22:00 06/20/2013 23 :59:59 CLS Outpatient
[2016-10-08 16:01] LABS: COLOR,URINE BROWN (YELLOW)
--- NOTE | 2016-10-08 16:28 | NUR ---
PT STATUS PT DENIES ANY COMPLAINTS AT THIS TIME, SHOWS NO SIGNS OF DISTRESS. PT HAS CALL LIGHT IN REACH.
--- NOTE | 2016-10-08 17:37 | NUR ---
REPORT REPORT CALLED TO GEMMA REY ON [facility]. PT ROOM ASSIGNMENT IS 142.
--- OUTSIDE RECORDS SUMMARY | 2016-10-08 17:38 | XMS REPORT | Continuity of Care Document ---
Author Author [facility] Organization [facility] Address Unknown Phone Unavailable Allergies Active Description Code Type Severity Reaction Onset Reported/Identified Relationship to Patient Clinical Status Yes No Known Allergies NKMA N/A N/A 08/01/2014 Medications Problems Procedures Results Encounters ACCT No. Visit Date/Time Discharge Status Pt. Type Provider Facility Loc./Unit Complaint [id number] 06/20/2013 09:22:00 06/20/2013 23 :59:59 CLS Outpatient
[2016-10-08] MEDS ORDERED: CIPROFLOXACIN 400mg in D5W 200ml BAG IV ONE (17:45)
[2016-10-08] MEDS ORDERED: METRONIDAZOLE IVPB 500 MG in NORMAL SALINE 100 ML IV ONE ×2 (17:45→20:45)
--- NOTE | 2016-10-08 17:45 | NUR ---
Admit Patient admitted to medical unit room 145 from ED. Arrived in wheelchair accompanied by staff. Patient alert and oriented. Answers questions appropriately. States some pain to lower back but reports it was "normal" pain and denied need for pain medicine. Admit process started.
--- NOTE | 2016-10-08 17:45 | NUR ---
ED DEPART PT DEPARTED PER WHEELCHAIR, [employer] TRANSPORTED PT TO ROOM 142 WITHOUT DIFFICULITES. PT HAS WALLET, SHIRT, AND GLASSESS ARE ALSO TRANSPORTED IN A PERSONAL BELONGINGS BAG.
--- NOTE | 2016-10-08 17:45 | NUR ---
FLAGGYL NOT GIVEN FLAGGYL NOT GIVEN IN ED, ORDERED AFTER PT TRANSFERED TO MEDICAL UNIT.
[2016-10-08 17:52] VITALS: BP 157/91; PULSE 57; RESP 16; TEMP 97.3; O2SAT 96
[2016-10-08 17:53] VITALS: Ht 167.6 cm; Wt 81.6 kg
[2016-10-08] MEDS ORDERED: ONDANSETRON 4mg/2ml INJECTION IV PRN (19:15)
[2016-10-08] MEDS ORDERED: PROMETHAZINE 25 MG INJECTION IV PRN (19:15)
--- NOTE | 2016-10-08 19:34 | HPPDOC ---
HPI - Adult Date DATE: 10/08/16 TIME: 19:18 General History of Present Illness Mr Kina denies alcoholism he cannot recall a time he has been without a drink for a week. 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 He does believe that he drinks too much however, and thinks may have to quit. He developed abdominal pain in the right flank last night that was quite sharp and unrelenting. He associates this with having drank moonshine last night, which is not in his normal drinking regimen. He cannot define his normal drinking regimen to me and except that he thinks it is not that much. Past Medical History Past Medical History Claims to been otherwise well Current Medications Home Meds Reported Medications [No Routine Meds] No Conflict Check 10/08/16 Allergies: Coded Allergies: No Known Allergies (Unverified , 10/08/16) Family History Family History: Reviewed and noncontributory Social History Smoking Status: Never smoker Substance Use Type: does not use Alcohol Intake: occasionally Advance Directives: No DPOA for Healthcare Only Review of Systems Constitutional: DENIES: chills, fever Eyes Vision: DENIES: double vision, loss of visual kerns Cardiovascular DENIES: chest pain Rhythm/Rate: DENIES: palpitations Pulmonary Respiratory: DENIES: cough, dyspnea GI Upper Abdomen: nausea, pain, DENIES: hematemesis, vomiting Lower Abdomen: DENIES: blood in stool, melena General: DENIES: dysuria, frequency, hematuria, urgency Physical Exam General General Nourishment: well nourished General Body Habitus: disheveled Vital Signs Vital Signs Date Time Temp Pulse Resp B/P Pulse Ox O2 Delivery O2 Flow Rate FiO2 10/08/16 18:13 90 98 10/08/16 18:10 135/81 10/08/16 17:52 97.3 16 Room Air Height (Feet): 5 Height (Inches): 6.00 Eyes Brief: FOUND: EOMI, PERRL, scleral icterus Neck Brief: NOT FOUND: JVD, nuchal rigidity Respiratory Brief: FOUND: clear all kerns, equal bilaterally Cardiovascular (brief) Cardiac Brief: FOUND: regular rate, regular rhythm, NOT FOUND: pedal edema Abdomen (brief) Abdominal Brief: FOUND: BS normo active x4, distended, hepatosplenomegaly, soft Integumentary (brief) Integumentary Brief: FOUND: dry, pink, warm Neurologic (brief) Neurological Brief: FOUND: cranial 2-12 intact, motor Neurologic RN Documented GCS Eye Opening: Verbal: Motor: Total: Psychiatric (brief) FOUND: alert, attentive, normal affect, oriented Laboratory Laboratory Tests Test 10/08/16 15:00 10/08/16 15:17 Urine Collection Type Cleancatch-midstream Urine Color Brown Urine Turbidity Clear Urine pH 5.5 Urine Specific [place] 1.025 Urine Protein Negative Urine Glucose (UA) 1+ Urine Ketones Negative Urine Blood Negative Urine Nitrite Negative Urine Bilirubin 3+ Urine Urobilinogen 0.2EU/DL Urine Leukocyte Esterase Negative Urinalysis Comment Microscopic not ind. White Blood Count 6.4T/MM3 Red Blood Count 4.48M/MM3 Hemoglobin 15.2GM/DL Hematocrit 43.7% Mean Corpuscular Volume 97.5UM3 Mean Corpuscular Hemoglobin 33.9UUG Mean Corpuscular Hemoglobin Concent 34.8GM/DL RDW Standard Deviation 51.5FL Platelet Count 191T/MM3 Mean Platelet Volume 10.3UM3 Immature Granulocyte % (Auto) 0.3% Neutrophils (%) (Auto) 66.1% Lymphocytes (%) (Auto) 19.7% Monocytes (%) (Auto) 7.5% Eosinophils (%) (Auto) 5.6% Basophils (%) (Auto) 0.8% Absolute Immature Granulocyte (auto 0.02T/MM3 Absolute Neutrophils (auto) 4.2T/MM3 Absolute Lymphocytes (auto) 1.3T/MM3 Absolute Monocytes (auto) 0.5T/MM3 Absolute Eosinophils (auto) 0.4T/MM3 Absolute Basophils (auto) 0.1T/MM3 Turbidity < 20 Sodium Level 147MEQ/L Potassium Level 4.6MEQ/L Chloride Level 111MEQ/L Carbon Dioxide Level 23MEQ/L Anion Gap 13MEQ/L Blood Urea Nitrogen 23.0MG/DL Creatinine 0.9MG/DL Glomerular Filtration Rate Calc 85 BUN/Creatinine Ratio 26RATIO Glucose Level 124MG/DL Calculated Osmolality 287MOSM/KG Calcium Level 9.1MG/DL Total Bilirubin 7.50MG/DL Icterus Index 2 Aspartate Amino Transf (AST/SGOT) 105U/L Alanine Aminotransferase (ALT/SGPT) 212U/L Alkaline Phosphatase 349U/L Total Protein 6.7G/DL Albumin 4.0G/DL Globulin 2.7G/DL Albumin/Globulin Ratio 1.5RATIO Lipase 1107U/L Chemistry Specimen Hemolysis < [address] of abdomen by virtual radiology findings is read as essentially benign Ultrasound of right upper quadrant read as sludgy and slightly distended gallbladder with 8mm common bile duct with no stone seen Assessment & Plan Problems: (1) Pancreatitis, alcoholic, acute Assessment & Plan: Dress of fluid resuscitation for dilution but patient does not score high on a [place] score and certainly does not need pressers at this point (2) Hyperbilirubinemia Status: Acute Assessment & Plan: Secondary alcoholic binge drinking (3) Acute right flank pain Assessment & Plan: Secondary to number 1. Have written for IV morphine (4) Alcohol abuse Assessment & Plan: Will have patient watched and placed on CIWA score equivalent. I question the patient's insight. Patient placed an observation more due to the likelihood that he be unwilling to stay a 2nd day if he feels significantly improved than on the fact that I think he would truly be able to discharge within 24 hours. DVT Prophylaxis: Lovenox Code Status Full Code Hospital Course Summary Disclaimer The hospital course summary below is not to be considered part of the above Progress Note. UMA MARSH MD October 08, 2016 19:21
[2016-10-08] MEDS: MORPHINE SULFATE 4 MG SYRINGE IV PRN (21:10)
[2016-10-08 21:13] LABS: ETHANOL <10 MG/DL (<10); LDH 479 U/L (313-618)
[2016-10-08] MEDS: POTASSIUM CHLORIDE 20 MEQ in NORMAL SALINE 1,000 ML IV SCH (21:35)
[2016-10-08 23:43] VITALS: BP 125/85; PULSE 70; RESP 18; TEMP 98.2; O2SAT 96
[2016-10-09] MEDS: MORPHINE SULFATE 4 MG SYRINGE IV PRN ×2 (01:09→07:21)
[2016-10-09] MEDS: POTASSIUM CHLORIDE 20 MEQ in NORMAL SALINE 1,000 ML IV SCH (04:29)
--- NOTE | 2016-10-09 06:24 | NUR ---
shift summary pt a/o x4; RA denies soa. x2 complaints of lower back pain noted. prn 2mg morphine IV given twice. pt pain significantly improved by morphine. pt has had adequate output.
[2016-10-09 06:29] LABS: AMPHETAMINE SCREEN,URINE NEGATIVE; BARBITURATE SCREEN,URINE NEGATIVE; BENZODIAZEPINES SCREEN,URINE NEGATIVE; CANNABINOID SCREEN,URINE NEGATIVE; COCAINE SCREEN,URINE NEGATIVE; METHADONE SCREEN, URINE NEGATIVE; METHAMPHETAMINE SCREEN, URINE NEGATIVE; OPIATE SCREEN,URINE POSITIVE; PHENCYCLIDINE SCREEN,URINE NEGATIVE; TRICYCLIC ANTIDEPRESSANT,URINE NEGATIVE
[2016-10-09] MEDS ORDERED: POTASSIUM CHLORIDE 20 MEQ in NORMAL SALINE 1,000 ML IV SCH (07:00)
[2016-10-09 08:02] VITALS: BP 131/81; PULSE 63; RESP 16; TEMP 97.5; O2SAT 97
[2016-10-09 08:11] VITALS: PULSE 63; RESP 16
[2016-10-09] MEDS ORDERED: MULTIVITAMIN IV SCH ×3 (09:00→11:00)
[2016-10-09] MEDS: FOLIC ACID 5 MG/ML INJECTION IV SCH (09:17)
[2016-10-09] MEDS: THIAMINE 200mg/2ml INJECTION IV SCH (09:18)
[2016-10-09] MEDS: PANTOPRAZOLE 40mg INJECTION IV SCH (09:18)
[2016-10-09] MEDS: ENOXAPARIN 40 MG/0.4 ML INJECTION SQ SCH (09:19)
[2016-10-09 09:46] LABS: BASOPHILS % (AUTO) 0.6 % (0-2); EOSINOPHILS # (AUTO) 0.4 T/MM3 (0-0.5); HCT - HEMATOCRIT 39.5 % (41-53); HGB - HEMOGLOBIN 13.8 GM/DL (13.5-17.5); IMMATURE GRANULOCYTE # (AUTO) 0.01 T/MM3 (0.00-0.03); IMMATURE GRANULOCYTE % (AUTO) 0.2 % (0.0-0.5); LYMPHOCYTES # (AUTO) 1.2 T/MM3 (1-4.8); LYMPHOCYTES % (AUTO) 23.4 % (23-45); MEAN CORPUSCULAR HGB 34.2 UUG (26-34); MEAN CORPUSCULAR HGB CONC(MCHC 34.9 GM/DL (31-37); MONOCYTES # (AUTO) 0.4 T/MM3 (0-0.8); MONOCYTES % (AUTO) 8.4 % (0-9.0); NEUTROPHILS #(AUTO)-ABSOLUTE 3.1 T/MM3 (1.8-7.7); NEUTROPHILS % (AUTO) 60.4 % (33-66); RED BLOOD COUNT 4.03 M/MM3 (4.50-5.90); WBC - WHITE BLOOD COUNT 5.1 T/MM3 (4.5-11.0)
[2016-10-09 09:50] LABS: ALBUMIN 3.2 G/DL (3.5-5.0); ALBUMIN/GLOBULIN RATIO 1.4 RATIO (1.1-2.2); ALKALINE PHOSPHATASE 299 U/L (38-126); ALT (SGPT) 166 U/L (21-72); ANION GAP 9 MEQ/L (5-15); AST (SGOT) 87 U/L (17-59); BUN/CREATININE RATIO 26 RATIO (6-26); CALCIUM 8.6 MG/DL (8.4-10.2); CHLORIDE 112 MEQ/L (98-107); CO2 - CARBON DIOXIDE 22 MEQ/L (22-30); CREATININE 0.7 MG/DL (0.8-1.5); GLOMERULAR FILTRATION RATE 113; GLUCOSE 103 MG/DL (75-110); POTASSIUM 4.5 MEQ/L (3.6-5); SODIUM 143 MEQ/L (134-144); TOTAL PROTEIN 5.5 G/DL (6.3-8.2)
[2016-10-09] MEDS ORDERED: SODIUM CHLORIDE IV SCH ×2 (11:00)
[2016-10-09] MEDS ORDERED: POTASSIUM CHLORIDE IV SCH ×2 (11:00)
--- NOTE | 2016-10-09 11:15 | DI ---
Indication: ITS.REASON: abd pain PROCEDURE: US GALLBLADDER: Encounter: Initial Comparison: None Technique: Grayscale and color Doppler sonographic imaging of the right upper quadrant of the abdomen was performed. Findings: Hepatic parenchyma shows mild intrahepatic bile duct dilatation. The gallbladder shows echogenic sludge without shadowing gallstone. Wall thickness is normal at 2 mm. Sonographic Sullivan sign was negative. Mildly dilated intra hepatic bile ducts and extra hepatic common duct up to 8 mm. Pancreas is not well seen due to shadowing bowel gas. The right kidney is present without collecting system dilatation. The right kidney measures 10.1 cm in length. Impression: Bile duct dilatation could represent biliary obstruction due to stone or mass. Contrast enhanced CT of the abdomen could be performed for further evaluation. Recommend correlation with liver function tests. There is a preliminary report by [facility]. .
--- NOTE | 2016-10-09 11:29 | DI ---
Indication: ITS.REASON: L Flank Pain PROCEDURE: CT RENAL W/O CONTRAST: Encounter: Initial Comparison: Gallbladder ultrasound from the same time Technique: Axial CT images were performed through the abdomen and pelvis without intravenous contrast. Coronal and sagittal two-dimensional reformats. Automated Exposure Control and Iterative Reconstruction dose reducing techniques were utilized. Findings: The lung bases are clear. Stomach is distended with fluid and debris. The liver shows moderate intrahepatic bile duct dilatation. Gallbladder is distended with prominence of the extrahepatic common duct. No obvious common duct stone. The spleen, pancreas and adrenal glands are within normal limits. Kidneys are normal. No abdominal or pelvic lymphadenopathy. Bladder is normal. No free fluid. No evidence of bowel obstruction. There are small lymph nodes seen around the pancreatic head. 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 Impression: Bile duct dilatation with some questionable increased density in the region of the distal common duct could represent stone debris, sludge or soft tissue neoplasm. Recommend further evaluation with ERCP. There is a preliminary report by [facility]. .
[2016-10-09 15:48] VITALS: BP 149/96; PULSE 75; RESP 16; TEMP 98; O2SAT 96
--- NOTE | 2016-10-09 18:12 | NUR ---
SHIFT SUMMARY PATIENT IS ALERT AND ORIENTED X3. PATIENT VITALS ARE STABLE AND PATIENT IS ON ROOM AIR. PATIENT DENIES CP, NAUSEA, AND SOA. PATIENT HAS REQUIRED PRN PO NORCO 1X THIS SHIFT. PATIENT IS UP WITH STANDBY. PATIENT TOLERATED DIET CHANGE TO CLEARS WELL. FAMILY AT BEDSIDE THROUGHOUT SHIFT. WILL CONTINUE TO MONITOR.
[2016-10-09] MEDS: NS KCL 20 MEQ 1,000 ML IV SCH (19:01)
--- NOTE | 2016-10-09 20:24 | PNPDOC ---
Subjective Date DATE: 10/09/16 TIME: 20:17 Subjective Mr. Castanon is having some abdominal pain a little bit of nausea but states that it is improving from his admission. Otherwise 10 system review is unchanged from admission. He is quite conversant and pleasant today with one friend in his room at this time Objective Vital Signs Vital signs Vital Signs Date Time Temp Pulse Resp B/P Pulse Ox O2 Delivery O2 Flow Rate FiO2 10/09/16 15:48 98.0 75 16 149/96 96 Room Air Height (Feet): 5 Height (Inches): 6.00 Weight (Kilograms): 83.800 General General Appearance: Alert, Orientated x 3, Cooperative Eyes (Brief) Eyes: FOUND: EOMI, PERRL, scleral icterus Neck (Brief) Neck: FOUND: midline, NOT FOUND: JVD, nuchal rigidity Respiratory (Brief) Respiratory: FOUND: clear all kerns, equal bilaterally, NOT FOUND: rales, wheezes Cardiovascular (Brief) Cardiac: FOUND: regular rate, regular rhythm, NOT FOUND: pedal edema Abdomen (Brief) Abdominal: FOUND: BS normo active x4, distended, soft, NOT FOUND: tender Extremities (Brief) Extremity : Side: Bilateral Extremity: leg Extremity Finding: NOT FOUND: deformity, edema Integumentary (Brief) Integumentary: FOUND: dry, pink, warm Neurologic (Brief) Neurological: FOUND: cranial 2-12 intact, motor, sensory Psychiatric (Brief) Psychiatric: FOUND: alert, attentive, oriented Laboratory Laboratory Laboratory Tests 10/08/16 15:17 10/09/16 05:07 Laboratory Tests 10/08/16 15:17 10/09/16 05:07 Radiology I'm ordering and MRCP Assessment & Plan Problems: (1) Pancreatitis, alcoholic, acute Status: Acute Qualifiers: Acute pancreatitis complication: no infection or necrosis Qualified Codes: K85.20 - Alcohol induced acute pancreatitis without necrosis or infection Assessment & Plan: Patient appears to be tolerating the fluids quite well thus far. Of concern is that his lipase only fell 200 points to 900 at this time. This raises question that there may be some obstruction remaining in common bile duct and so I'm ordering and MRCP at this time to be performed in the morning (2) Hyperbilirubinemia Status: Acute Assessment & Plan: Will repeat lab work for this in the morning (3) Acute right flank pain Assessment & Plan: Appears well-controlled and patient has not been asking for much morphine will transition patient sips of water and allow him to have [place] (4) Alcohol abuse Assessment & Plan: Really not showing any signs of withdrawal at this time. Although patient and I have had discussion about his need to give up alcohol. Patient does appear to have some moderate remorse to his activities Code Status Full Code Hospital Course Summary Disclaimer The hospital course summary below is not to be considered part of the above Progress Note. Hospital Course Summary 10/09/2016 patient showing some symptomatic improvement but lab work is uninspiring. Will get MRCP and repeat labs in the morning UMA MARSH MD October 09, 2016 20:21
--- NOTE | 2016-10-09 22:30 | NUR ---
PRN PT WAS GIVEN PAIN MEDICATION FOR 4/10 PAIN. PT ALERT AND ORIENTED. WILL CONTINUE TO MONITOR.
[2016-10-10 00:20] VITALS: BP 124/77; PULSE 67; RESP 18; TEMP 97.3; O2SAT 96
[2016-10-10] MEDS: NS KCL 20 MEQ 1,000 ML IV SCH ×3 (02:06→18:14)
[2016-10-10 05:06] LABS: ALBUMIN 3.1 G/DL (3.5-5.0); ALBUMIN/GLOBULIN RATIO 1.3 RATIO (1.1-2.2); ALKALINE PHOSPHATASE 296 U/L (38-126); ALT (SGPT) 147 U/L (21-72); ANION GAP 9 MEQ/L (5-15); AST (SGOT) 71 U/L (17-59); BUN/CREATININE RATIO 17 RATIO (6-26); CALCIUM 8.4 MG/DL (8.4-10.2); CHLORIDE 110 MEQ/L (98-107); CO2 - CARBON DIOXIDE 24 MEQ/L (22-30); CREATININE 0.7 MG/DL (0.8-1.5); GLOMERULAR FILTRATION RATE 113; GLUCOSE 92 MG/DL (75-110); LIPASE 581 U/L (23-300); POTASSIUM 4.4 MEQ/L (3.6-5); SODIUM 143 MEQ/L (134-144); TOTAL PROTEIN 5.5 G/DL (6.3-8.2)
--- NOTE | 2016-10-10 06:00 | NUR ---
SUMMARY PT SLEPT WELL THIS SHIFT. NPO SINCE MID NIGHT. PT IS ALERT AND ORIENTED. WAS GIVEN PAIN MEDICATION AT HS. NO PAIN THIS AM. PT IS UP AD SHANE IN THE ROOM. EDUCATED ABT CALL LIGHT USE AND PT SAFETY.
[2016-10-10 07:18] VITALS: BP 136/83; PULSE 60; RESP 18; TEMP 96; O2SAT 95
[2016-10-10] MEDS: PANTOPRAZOLE 40mg INJECTION IV SCH (08:39)
[2016-10-10] MEDS: THIAMINE 200mg/2ml INJECTION IV SCH (08:42)
[2016-10-10] MEDS: ENOXAPARIN 40 MG/0.4 ML INJECTION SQ SCH (08:48)
[2016-10-10] MEDS: FOLIC ACID 5 MG/ML INJECTION IV SCH (08:49)
[2016-10-10] MEDS: POTASSIUM CHLORIDE IV SCH ×3 (09:25)
[2016-10-10] MEDS: MULTI VIT INF IV SCH ×3 (09:25)
[2016-10-10] MEDS: NORMAL SALINE IV SCH ×3 (09:25)
--- NOTE | 2016-10-10 09:43 | NUR ---
Status Patient alert and oriented. Up in room on own. Jaundice in color, bili elevated. Does complain of some mild right sided pain. Currently NPO for MRI.
--- NOTE | 2016-10-10 13:26 | DI ---
Indication: ITS.REASON: r/o stone in CBD MRI MRCP ABD W/O CONTRAST: Comparison: Ultrasound the gallbladder and a CT scan both dating 10/08/2016 Technique: No contrast is utilized patient does show T1 and T2-weighted images in and out of phase. Findings: Left-sided pleural effusion identified with just a tiny right-sided effusion. No filling defects identified clearly within the gallbladder. Pancreas shows no ductal dilatation or specific focal masses. No specific filling defect is appreciated in the bowel duct although, to mildly prominent. No focal liver lesions were seen. Kidneys are unremarkable. Retroperitoneum shows normal caliber aorta and vena cava. Impression: 1. No specific stone seen in the gallbladder although, it is fairly prominent, nor in the common duct. 2. Pancreas seems unremarkable. 3. Bilateral pleural effusions greater on the left side .
[2016-10-10 15:29] VITALS: BP 135/83; PULSE 63; RESP 16; TEMP 96.6; O2SAT 95
--- NOTE | 2016-10-10 16:18 | NUR ---
CM THIS WORKER MET WITH PT ON THIS DATE. THIS PT SITTING IN BED AT THIS TIME. THIS WORKER INTRODUCED SELF AND ROLE OF CASE MANAGEMENT. THIS WORKER DISCUSSED DRUG AND ALCOHOL ASSESSMENT WITH PT. PT WAS AGREEABLE TO THE ASSESSMENT HE HAS BEEN PLANNING TO QUIT DRINKING. PT WAS ALSO GIVEN RESOURCES FOR AA MEETINGS. THIS WORKER ASSISTED PT IN OBTAINING APPOINTMENT FOR THIS ASSESSMENT 10/18/16 AT 8:30AM. PT REPORTED THAT HE HAS FAMILY SUPPORT AVAILABLE IF NEEDED. PT DENIED ANY OTHER NEEDS IN DISCHARGE PLANNING. PT WAS ALSO GIVEN THIS WORKER'S CONTACT INFORMATION AND ENCOURAGED TO CONTACT THIS WORKER EVEN AFTER DISCHARGE. THIS WORKER PROVIDED SUPPORTIVE LISTENING TO PT DURING THIS VISIT. PT IS CURRENTLY EMPLOYED AND ISN'T SURE REGARDING PLAN FOR RETURN TO WORK. PT LIVES IN HIS [place] AND STATES THAT HE HAS AN INCOME AND IS ABLE TO MEET ALL OF HIS BASIC NEEDS.
--- NOTE | 2016-10-10 18:38 | PNPDOC ---
Subjective Date DATE: 10/10/16 TIME: 18:27 Subjective Mr. Castanon reports mild left-sided abdominal discomfort requiring a pain pill this afternoon but no IV medication. He is hungry and tolerated clear liquids yesterday but was nothing by mouth today for MRCP. He denies dyspnea, fever, nausea/vomiting, lightheadedness, or difficulty urinating. Objective Vital Signs Vital signs Vital Signs Date Time Temp Pulse Resp B/P Pulse Ox O2 Delivery O2 Flow Rate FiO2 10/10/16 15:29 96.6 63 16 135/83 95 Room Air EXAM General-NAD, alert, cooperative, fluent speech HEENT-conjunctiva clear, mild icterus, conjugate gaze Lungs-respirations nonlabored, good airflow, breath sounds clear Cardiac-regular rhythm Abd-soft, mild distention but nontender and bowel sounds present Ext-without edema Neuro-moving all extremities well/spontaneously Psych-calm, cooperative - Height (Feet): 5 Height (Inches): 6.00 Weight (Kilograms): 83.400 Laboratory Laboratory Laboratory Tests 10/09/16 05:07 10/10/16 04:20 Laboratory Tests 10/09/16 05:07 Bilirubin 8.3 (direct greater than indirect) AST 71, ALT 147, alkaline phosphatase 196-all improving slowly Lipase 581 Radiology MRCP reviewed by myself-no ductal obstruction or evidence of stones; small left pleural effusion. No ascites described; no focal liver lesions or pancreatic abnormalities reported. Assessment & Plan Problems: (1) Pancreatitis, alcoholic, acute Status: Acute Qualifiers: Acute pancreatitis complication: no infection or necrosis Qualified Codes: K85.20 - Alcohol induced acute pancreatitis without necrosis or infection (2) Hyperbilirubinemia Status: Acute Assessment & Plan: Primarily conjugated (3) Acute right flank pain Status: Acute (4) Abnormal liver enzymes Assessment & Plan: ALT consistently > AST (5) Pleural effusion on left Status: Acute Assessment & Plan: Small asymptomatic (6) Alcohol abuse Status: Chronic Assessment Clinically improved; no evidence of ductal obstruction although small asymptomatic left pleural effusion reported by MRCP-not present on initial CT obtained in the ER. Bilirubin elevated and AST/ALT ratio atypical of alcoholic liver disease. Acute hepatitis panel to be obtained. Patient tolerated clear liquid diet and will be started on a bland diet at this time. If tolerates solid food can potentially discharge with close outpatient follow-up of liver enzyme abnormalities as further workup will potentially be needed. Abstinence necessary. Plan/Intensity of Service MRCP reviewed by myself, CT scan obtained as 10/08 reviewed by myself, laboratory data reviewed, discussed with case management/nursing. Code Status Full Code Hospital Course Summary Disclaimer The hospital course summary below is not to be considered part of the above Progress Note. Hospital Course Summary 10/08/16 Hospitalized with alcoholic pancreatitis and treated with IV fluids, IV antiemetics and narcotics. Monitor closely for alcohol withdrawal. 10/09/2016 Patient showing some symptomatic improvement but lab work is minimally improved. Will get MRCP and repeat labs in the morning 10/08/16 Clinically improved; no evidence of ductal obstruction although small asymptomatic left pleural effusion reported by MRCP-not present on initial CT obtained in the ER. Bilirubin elevated and AST/ALT ratio atypical of alcoholic liver disease. Acute hepatitis panel to be obtained. Patient tolerated clear liquid diet and will be started on a bland diet at this time. If tolerates solid food can potentially discharge with close outpatient follow-up of liver enzyme abnormalities as further workup will potentially be needed. Abstinence necessary. PTA EASTMAN MD October 10, 2016 18:32
--- NOTE | 2016-10-10 18:38 | NUR ---
Status Patient happy his diet was advanced to bland food. [place] given for right sided abdominal pain. Denies nausea. Continues to be jaundice in color.
[2016-10-10 20:58] VITALS: PULSE 62; RESP 16; O2SAT 99
[2016-10-10 23:59] VITALS: BP 128/85; PULSE 64; RESP 18; TEMP 97.6; O2SAT 96
--- NOTE | 2016-10-11 03:48 | NUR ---
SHIFT SUMMARY: PT & A&OX3, FRIENDLY AND COOPERATIVE, HAD FAMILY AND FRIENDS IN ROOM UNTIL 22:00, UP AT [facility], ON ROOM AIR, FLUIDS RUNNING, TELEMETRY, ASKED FOR A PAIN MED (SEE EMAR) EARLY IN MY SHIFT, PT HAS BEEN MADE INPATIENT, DIET ADVANCED TO BLAND/LOWFAT, DENIES NAUSEA OR SOA, VITALS STABLE. CALL LIGHT WITHIN REACH, BED ALARM ON.
[2016-10-11 04:49] LABS: HEPATITIS B SURFACE AG - BATCH NEGATIVE (NEGATIVE)
[2016-10-11 04:55] LABS: HEPATITIS A ANTIBODY IGM-BATCH NEGATIVE (NEGATIVE)
[2016-10-11 05:06] LABS: HEPATITIS C VIRUS AB-BATCH NEGATIVE (NEGATIVE)
[2016-10-11 05:17] LABS: BASOPHILS % (AUTO) 0.7 % (0-2); EOSINOPHILS # (AUTO) 0.2 T/MM3 (0-0.5); EOSINOPHILS % (AUTO) 5.2 % (0-4); HCT - HEMATOCRIT 37.9 % (41-53); HGB - HEMOGLOBIN 13.2 GM/DL (13.5-17.5); LYMPHOCYTES # (AUTO) 1.1 T/MM3 (1-4.8); MEAN CORPUSCULAR HGB 33.8 UUG (26-34); MEAN CORPUSCULAR HGB CONC(MCHC 34.8 GM/DL (31-37); MEAN CORPUSCULAR VOLUME 96.9 UM3 (80-100); MONOCYTES # (AUTO) 0.4 T/MM3 (0-0.8); MONOCYTES % (AUTO) 9.1 % (0-9.0); NEUTROPHILS #(AUTO)-ABSOLUTE 2.5 T/MM3 (1.8-7.7); RED BLOOD COUNT 3.91 M/MM3 (4.50-5.90); WBC - WHITE BLOOD COUNT 4.3 T/MM3 (4.5-11.0)
[2016-10-11 05:25] LABS: ALBUMIN 3.2 G/DL (3.5-5.0); ALBUMIN/GLOBULIN RATIO 1.3 RATIO (1.1-2.2); ALKALINE PHOSPHATASE 286 U/L (38-126); ALT (SGPT) 143 U/L (21-72); ANION GAP 9 MEQ/L (5-15); AST (SGOT) 76 U/L (17-59); BUN/CREATININE RATIO 17 RATIO (6-26); CALCIUM 8.8 MG/DL (8.4-10.2); CHLORIDE 111 MEQ/L (98-107); CO2 - CARBON DIOXIDE 24 MEQ/L (22-30); CREATININE 0.7 MG/DL (0.8-1.5); GLOMERULAR FILTRATION RATE 113; GLUCOSE 88 MG/DL (75-110); LIPASE 460 U/L (23-300); POTASSIUM 4.4 MEQ/L (3.6-5); SODIUM 144 MEQ/L (134-144); TOTAL PROTEIN 5.6 G/DL (6.3-8.2)
[2016-10-11] MEDS: NS KCL 20 MEQ 1,000 ML IV SCH (06:51)
[2016-10-11 07:55] VITALS: BP 141/86; PULSE 57; RESP 16; TEMP 95.4; O2SAT 94
[2016-10-11] MEDS: ENOXAPARIN 40 MG/0.4 ML INJECTION SQ SCH (08:46)
[2016-10-11] MEDS: PANTOPRAZOLE 40mg INJECTION IV SCH (08:46)
[2016-10-11] MEDS ORDERED: FOLIC ACID 1 MG TABLET PO SCH (09:00)
[2016-10-11] MEDS ORDERED: THIAMINE 100 MG TABLET PO SCH (09:00)
--- NOTE | 2016-10-11 09:08 | DI ---
INDICATION: ITS.REASON: left pleural effusion, pancreatitis PROCEDURE: CHEST 2-VIEWS UPRIGHT (PA \T\ LAT) Encounter: Initial COMPARISON: December 16, 2010 FINDINGS: Left lower lobe atelectasis. Trace pleural effusions. No pneumothorax. Heart size and mediastinal contours are stable. Tortuous ectatic thoracic aorta. Impression: Left lower lobe atelectasis and trace effusions. .
[2016-10-11] MEDS: NORMAL SALINE IV SCH ×3 (09:50)
[2016-10-11] MEDS: POTASSIUM CHLORIDE IV SCH ×3 (09:50)
[2016-10-11] MEDS: MULTI VIT INF IV SCH ×3 (09:50)
--- NOTE | 2016-10-11 10:58 | NUR ---
CM THIS WORKER MET WITH PT ON THIS DATE. THIS WORKER ASSISTED PT IN OBTAINING FOLLOW UP APPOINTMENT WITH PCP. PT DECIDED ON [facility] FOR FOLLOW UP. PT WILL SEE GUILHERME GABRIEL ON MONDAY AND WILL PLAN TO FOLLOW WITH DR CALZADA. PT AGREEABLE TO THIS FOLLOW UP AND IS AWARE OF THE APPOINTMENT TIMES. PT ENCOURAGED TO CONTACT THIS WORKER WITH ANY NEEDS.
[2016-10-11 15:18] VITALS: BP 144/92; PULSE 74; RESP 17; TEMP 96.4; O2SAT 97
[2016-10-11] MEDS ORDERED: FAMO20TA8 PO (16:25)
[2016-10-11] MEDS ORDERED: THIA100T13 PO (16:25)
[2016-10-11] MEDS ORDERED: FOLI1TAB15 PO (16:25)
[2016-10-11] MEDS ORDERED: HYDR-4072 PO (16:25)
--- NOTE | 2016-10-11 17:00 | NUR ---
DISCHARGE PT UP AD [facility] IN ROOM. CALLED FOR NEEDS. DENIED PAIN FOR ME. A&OX3. VERY JAUNDICED. DISCHARGE INSTRUCTIONS EXPLAINED TO PATIENT. SCRIPTS X4 SENT WITH PATIENT. IV DC'D. ID BAND REMOVED. PT AMBULATED TO CAR BY THIS RN. PT DENIED QUESTIONS.
--- NOTE | 2016-10-11 23:07 | DSPDOC ---
General Date Date DATE: 10/11/16 TIME: 22:46 Attending Physician Cynthia Nunez MD Admitting Physician Cynthia Nunez MD Consulting Physician Lam Lan MD,Facs,Cws Admitting Diagnosis Acute Pancreatitis Discharge Diagnosis 1. Acute pancreatitis 2. Abnormal liver enzymes/hyperbilirubinemia 3. History alcohol use 4. Right flank pain, resolved 5. Left pleural effusion, trivial 6. Dehydration 7. Hypernatremia Laboratory Laboratory Tests Test 10/10/16 19:22 10/11/16 04:25 Hepatitis A IgM Antibody Negative (NEGATIVE) Hepatitis B Surface Antigen Negative (NEGATIVE) Hepatitis B Core IgM Antibody Negative (NEGATIVE) Hepatitis C Antibody Negative (NEGATIVE) White Blood Count 4.3T/MM3 (4.5-11.0) Red Blood Count 3.91M/MM3 (4.50-5.90) Hemoglobin 13.2GM/DL (13.5-17.5) Hematocrit 37.9% (41-53) Mean Corpuscular Volume 96.9UM3 (80-100) Mean Corpuscular Hemoglobin 33.8UUG (26-34) Mean Corpuscular Hemoglobin Concent 34.8GM/DL (31-37) RDW Standard Deviation 49.0FL (36.9-50.2) Platelet Count 156T/MM3 (130-400) Mean Platelet Volume 11.0UM3 (9.4-12.4) Immature Granulocyte % (Auto) 0.0% (0.0-0.5) Neutrophils (%) (Auto) 59.0% (33-66) Lymphocytes (%) (Auto) 26.0% (23-45) Monocytes (%) (Auto) 9.1% (0-9.0) Eosinophils (%) (Auto) 5.2% (0-4) Basophils (%) (Auto) 0.7% (0-2) Absolute Immature Granulocyte (auto 0.00T/MM3 (0.00-0.03) Absolute Neutrophils (auto) 2.5T/MM3 (1.8-7.7) Absolute Lymphocytes (auto) 1.1T/MM3 (1-4.8) Absolute Monocytes (auto) 0.4T/MM3 (0-0.8) Absolute Eosinophils (auto) 0.2T/MM3 (0-0.5) Absolute Basophils (auto) 0.0T/MM3 (0-0.2) Turbidity < 20 (0-20) Sodium Level 144MEQ/L (134-144) Potassium Level 4.4MEQ/L (3.6-5) Chloride Level 111MEQ/L (98-107) Carbon Dioxide Level 24MEQ/L (22-30) Anion Gap 9MEQ/L (5-15) Blood Urea Nitrogen 12.0MG/DL (9-20) Creatinine 0.7MG/DL (0.8-1.5) Glomerular Filtration Rate Calc 113 BUN/Creatinine Ratio 17RATIO (6-26) Glucose Level 88MG/DL (75-110) Calculated Osmolality 276MOSM/KG (261-280) Calcium Level 8.8MG/DL (8.4-10.2) Total Bilirubin 8.10MG/DL (0.20-1.30) Conjugated Bilirubin 3.30MG/DL (0.00-0.30) Unconjugated Bilirubin 1.70MG/DL (0.00-1.10) Icterus Index 3 (0-7) Aspartate Amino Transf (AST/SGOT) 76U/L (17-59) Alanine Aminotransferase (ALT/SGPT) 143U/L (21-72) Alkaline Phosphatase 286U/L (38-126) Total Protein 5.6G/DL (6.3-8.2) Albumin 3.2G/DL (3.5-5.0) Globulin 2.4G/DL (2.4-3.6) Albumin/Globulin Ratio 1.3RATIO (1.1-2.2) Lipase 460U/L (23-300) Chemistry Specimen Hemolysis 16 (0-25) White count on admission 6.4 with hemoglobin 15.2 and platelet count 191,000. Admission chemistries notable for sodium 147, BUN 23, creatinine 0.9, bilirubin 7.0, AST 105, ALT 212, alkaline phosphatase 349, triglycerides 235, lipase 1107 , LDH 479 Urine drug screen positive for opiates but otherwise negative, alcohol negative on admission Radiology Renal CT on admission revealed clear lung bases, gastric distention, moderate intrahepatic ductal dilatation and prominent gallbladder without evidence of cholelithiasis. Extrahepatic ducts described as prominent but no evidence of choledocholithiasis. Small lymph nodes seen around pancreatic head and bilateral L5 spondylosis/spondylolisthesis of L1 on L5. No evidence of nephrolithiasis reported. Gallbladder sonogram on admission demonstrated mild intrahepatic ductal dilatation, sludge in the gallbladder without shadowing, Sullivan sign was negative. Common bile duct was dilated up to 8 mm. Pancreas was not well seen and kidneys were unremarkable. MRCP on 10/10 demonstrated a small left pleural effusion. No filling defects were seen within the gallbladder or common duct. Pancreas revealed no ductal dilatation or mass. No hepatic mass was visualized. Chest x-ray on 10/11 suggested atelectasis at the left base and trace pleural effusions. History of Present Illness Mr Castanon presented with acute flank pain with associated nausea but no vomiting. ER evaluation demonstrated elevated lipase and abnormal liver enzymes. Patient reports chronic alcohol use although denies excessive alcohol ingestion. 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 He does believe that he drinks too much however, and thinks may have to quit. He developed abdominal pain in the right flank last night that was quite sharp and unrelenting. He associates this with having drank moonshine last night, which is not in his normal drinking regimen. He cannot define his normal drinking regimen to me and except that he thinks it is not that much. Hospital Course Patient hospitalized by the hospitalist service with resumed alcoholic pancreatitis and treated with IV fluids, IV antiemetics and narcotics. He was monitored closely for alcohol withdrawal. Lipase was elevated and there were suspicious radiographic abnormalities although MRCP did not confirm evidence of gallstones, choledocholithiasis, or hepatic mass. Lipase improved progressively over the next couple of days and abdominal pain fully resolved as did nausea. Patient was able to advance his diet to clear liquids and then a low -fat diet without recurrent symptoms. Liver enzymes improved slowly although bilirubin remained elevated with conjugated bili predominating. The patient has had no recent medical care and preceding labs are not available. Although alcohol abuse was initially suspected liver enzymes are atypical for this diagnosis as his ALT is consistently been higher than the AST. Hepatitis studies for acute hep A, B, and C were obtained and are all negative. The patient felt well and was anxious to discharge on 10/11. Given clinical improvement remainder of workup can be pursued as an outpatient. The need to have additional evaluation of his abnormal liver enzymes was stressed to the patient on multiple occasions. Imaging did not suggest cirrhosis and albumin is only minimally depressed. INR was not screened during the hospitalization. Similarly GGT was not assessed and no antibodies referable to hepatic disease were ordered. Need to avoid alcohol completely was discussed on multiple occasions and the patient has been set up for a [facility] evaluation on 10/18. Patient was felt stable for discharge on 10/11 which time he denied abdominal pain, nausea, or vomiting. He continues to have some reflux/dyspepsia. Abdomen was entirely benign on examination. Respirations are nonlabored and breath sounds clear. Need for additional evaluation of his liver abnormalities is noted above. Patient has been scheduled [facility] an appointment at [facility] on [facility]14 at 8: 30. I suggested that the patient that he may require referral to gastroenterology/hepatology for further evaluation. Patient will be discharged with B vitamin supplementation in addition to Pepcid for dyspepsia and Ona prn for pain pending repeat evaluation later this week. >30 minutes spent on patient care and discharge care coordination today on the date of discharge. -- Problems: (1) Pancreatitis, alcoholic, acute Status: Acute (2) Hyperbilirubinemia Status: Acute Assessment & Plan: Primarily conjugated (3) Acute right flank pain Status: Acute (4) Abnormal liver enzymes Assessment & Plan: ALT consistently > AST (5) Pleural effusion on left Status: Acute Assessment & Plan: Small asymptomatic (6) Alcohol abuse Status: Chronic (7) Dehydration Status: Resolved Assessment & Plan: Present on admission as evidenced by drop in hemoglobin with hydration, elevated BUN and sodium on admission-both improved with fluids. (8) Hypernatremia Status: Resolved Assessment & Plan: Present on admission (9) Acid reflux Status: Acute Code Status Full Code Home Meds Active Scripts Famotidine (Famotidine) 20 Mg Tablet, 1 TAB PO BID for DYSPEPSIA for 30 Days, # 60 TAB Prov:CYNTHIA NUNEZ MD 10/11/16 Hydrocodone/Acetaminophen (Hydrocodon-Acetaminoph 7.5-325) 7.5-325 Tablet, 1 TAB PO Q4H Y for PAIN, #20 TAB Prov:CYNTHIA NUNEZ MD 10/11/16 Thiamine (Thiamine HCl) 100 Mg Tablet, 100 MG PO DAILY for 30 Days, #30 TAB Prov:CYNTHIA NUNEZ MD 10/11/16 Folic Acid (Folic Acid) 1 Mg Tablet, 1 MG PO DAILY for 30 Days, #30 TAB Prov:CYNTHIA NUNEZ MD 10/11/16 Discontinued Reported Medications [No Routine Meds] No Conflict Check 10/08/16 Face to Face Encounter I met with patient on the day of dismissal and discussed follow up appointments , medications, and safety plan. Discharge Disposition Home Copies To 1: CASS WARNER APRN, ROBERTA L MD October 11, 2016 22:53
--- NOTE | 2016-10-12 10:56 | NUR ---
FOLLOW UP CALL ATTEMPT LEFT MESSAGE ON THIS DATE.
== END 2016-10-11 17:00 | disposition home or self-care (01) | DRG 439 ==
LOC: ED 14:58 → EDHOLD 17:22 → MED 17:45 → OBSVTOIN 10-10 18:56
PROVIDERS: ADMIT Family Medicine; ATTEND Internal Medicine
DX: K85.20 Alcohol induced acute pancreatitis without necrosis or infection (principal); E87.0 Hyperosmolality and hypernatremia; E80.6 Other disorders of bilirubin metabolism; F10.20 Alcohol dependence, uncomplicated; R74.8 Abnormal levels of other serum enzymes; E86.0 Dehydration; K21.9 Gastro-esophageal reflux disease without esophagitis
CPT/HCPCS: 36415; 80053; 80074; 80306; 80307; 81003; 82248; 83615; 83690; 84478; 85025; 93005; 96372; 99218